=== PATIENT | female | born 1945 | race Two or more races ===

== ENCOUNTER 2018-06-13 03:50 | Inpatient (IN) | payer MEDICARE, MEDICAID ==
[~2018-06-13] VITALS: Ht 165.1 cm; Wt 76.2 kg
[2018-06-13] MEDS ORDERED: PANTOPRAZOLE 40 MG VIAL ONE (04:19)
[2018-06-13] MEDS ORDERED: OCTREOTIDE 100 MCG/ML VIAL ONE (04:23)
[2018-06-13 04:30] LABS: BASOPHILS % (AUTO) 0.3 % (0.0-2.0); EOSINOPHILS % (AUTO) 1.1 % (0.0-6.0); HEMATOCRIT 38 % (33-45); HEMOGLOBIN 12.7 g/dL (11.5-14.8); LYMPHOCYTES # (AUTO) 2.8 /CMM (0.8-4.8); LYMPHOCYTES % (AUTO) 24.4 % (20.0-44.0); MEAN CORPUSCULAR HGB CONC 33 g/dl (31.0-36.0); MEAN CORPUSCULAR VOLUME 91 fL (82-100); MONOCYTES # (AUTO) 0.7 /CMM (0.1-1.30); MONOCYTES % (AUTO) 6.1 % (2.0-12.0); NEUTROPHILS # (AUTO) 7.8 /CMM (1.8-8.9); NEUTROPHILS % (AUTO) 68.1 % (43.0-81.0); PLATELET COUNT (AUTO) 314 /CMM (150-450); RED BLOOD CELL COUNT(AUTO) 4.22 MIL/uL (4.0-5.2); WHITE BLOOD COUNT (AUTO) 11.4 K/uL (4.3-11.0)
[2018-06-13] MEDS ORDERED: OCTREOTIDE 50 MCG/ML AMPUL SQ ONE (04:30)
[2018-06-13] MEDS ORDERED: PANTOPRAZOLE 80 MG in IV NS 0.9% 500 ML IV ONE (04:30)
[2018-06-13] MEDS ORDERED: IV NS 0.9% 1,000 ML BAG IV ONE (04:30)
[2018-06-13 04:41] LABS: CALCIUM, SERUM 8.9 mg/dL (8.5-10.1); CARBON DIOXIDE 25 mmol/L (21-32); CHLORIDE 106 mmol/L (98-107); CREATININE 0.7 mg/dL (0.6-1.3); GLUCOSE 197 mg/dL (74-106); POTASSIUM 3.7 mmol/L (3.5-5.1); SODIUM SERUM 141 mmol/L (136-145); UREA NITROGEN, BLOOD 14 mg/dL (7-18)
[2018-06-13 04:47] LABS: ALANINE AMINOTRANSFERASE 29 U/L (12-78); ALBUMIN 3.2 g/dL (3.4-5.0); ALKALINE PHOSPHATASE 56 U/L (46-116); ASPARTATE AMINOTRANSFERASE 16 U/L (15-37); BILIRUBIN,DIRECT 0.1 mg/dL (0.0-0.2); BILIRUBIN,TOTAL 0.6 mg/dL (0.2-1.0); TOTAL PROTEIN, SERUM 6.1 g/dL (6.4-8.2)
[2018-06-13 05:06] LABS: CREATINE KINASE, TOTAL 41 U/L (26-192)
[2018-06-13] MEDS: IV NS 0.9% 1,000 ML BAG IV PRN ×2 (05:20→06:42)
[2018-06-13] MEDS ORDERED: MAG HYDROX/AL HYDROX/SIMETH 30 ML UDC PO PRN (05:30)
[2018-06-13] MEDS ORDERED: MAGNESIUM HYDROXIDE 30 ML UDC PO PRN (05:30)
[2018-06-13] MEDS ORDERED: MORPHINE SULFATE INJ 2 MG/ML DISP.SYRIN IV PRN (05:30)
[2018-06-13] MEDS ORDERED: ONDANSETRON HCL/PF 4 MG/2 ML VIAL IVP PRN (05:30)
[2018-06-13 06:10] VITALS: BP 126/55
[2018-06-13] MEDS ORDERED: PANTOPRAZOLE 80 MG in IV NS 0.9% 500 ML IV PRN (06:30)
[2018-06-13] MEDS ORDERED: IV NS 0.9% 1,000 ML IV PRN (07:00)
[2018-06-13 08:00] VITALS: BP 103/91
[2018-06-13] MEDS ORDERED: PANTOPRAZOLE 40 MG VIAL IV SCH (09:00)
[2018-06-13] MEDS ORDERED: OMEP1CAP2 PO (10:20)
[2018-06-13] MEDS ORDERED: OLOP2.5D EACHEYE (10:20)
[2018-06-13] MEDS ORDERED: CELE200C PO (10:20)
[2018-06-13] MEDS ORDERED: AMYL1CAP58 PO (10:20)
[2018-06-13] MEDS ORDERED: ACET1TAB23 PO (10:20)
[2018-06-13] MEDS ORDERED: LIRA0.6P2 SQ (10:20)
[2018-06-13] MEDS ORDERED: DAPA1TAB3 PO (10:20)
[2018-06-13] MEDS ORDERED: ATEN25TA PO (10:20)
[2018-06-13] MEDS ORDERED: CYCL30DR EACHEYE (10:20)
[2018-06-13] MEDS ORDERED: ASPI-1169 PO (10:20)
[2018-06-13] MEDS ORDERED: RALO60TA PO (10:20)
[2018-06-13] MEDS ORDERED: EZET10TA14 PO (10:20)
[2018-06-13 11:37] LABS: APPEARANCE,URINE CLEAR (CLEAR); BILIRUBIN,URINE NEGATIVE (NEGATIVE); BLOOD, URINE TRACE Ery/uL (NEGATIVE); COLOR,URINE YELLOW (YELLOW); KETONES,URINE NEGATIVE (NEGATIVE); LEUKOCYTE ESTERASE ,URINE NEGATIVE (NEGATIVE); NITRITE, URINE NEGATIVE (NEGATIVE); PH,URINE 5.5 (5.0-8.0); PROTEIN,URINE NEGATIVE (NEGATIVE); UGLUCOSE 3+ mg/dL (NEGATIVE); UROBILINOGEN,URINE 0.2 EU/dL (0.2)
[2018-06-13 11:40] LABS: BACTERIA,URINE Few /HPF (None Seen); MUCUS,URINE Rare /LPF (None Seen); SQUAMOUS EPITHELIAL CELL,UR Few /HPF (None Seen)
[2018-06-13 12:00] VITALS: BP 103/56
[2018-06-13 16:00] VITALS: BP 109/55
[2018-06-13 20:00] VITALS: BP 118/54
[2018-06-14] VITALS: BP 134/53
[2018-06-14 04:00] VITALS: BP 116/50
[2018-06-14] MEDS: ACETAMINOPHEN 325 MG TABLET PO PRN ×2 (04:12→12:18)
[2018-06-14 07:20] LABS: BASOPHILS # (AUTO) 0.1 /CMM (0.0-0.2); BASOPHILS % (AUTO) 0.6 % (0.0-2.0); EOSINOPHILS % (AUTO) 2.2 % (0.0-6.0); HEMATOCRIT 29 % (33-45); LYMPHOCYTES % (AUTO) 36.8 % (20.0-44.0); MEAN CORPUSCULAR HGB CONC 34 g/dl (31.0-36.0); MEAN CORPUSCULAR VOLUME 89 fL (82-100); MONOCYTES # (AUTO) 0.6 /CMM (0.1-1.30); MONOCYTES % (AUTO) 7.3 % (2.0-12.0); NEUTROPHILS # (AUTO) 4.3 /CMM (1.8-8.9); NEUTROPHILS % (AUTO) 53.1 % (43.0-81.0); PLATELET COUNT (AUTO) 251 /CMM (150-450); RED BLOOD CELL COUNT(AUTO) 3.26 MIL/uL (4.0-5.2)
[2018-06-14 07:35] LABS: CALCIUM, SERUM 8.2 mg/dL (8.5-10.1); CARBON DIOXIDE 25 mmol/L (21-32); CHLORIDE 108 mmol/L (98-107); CREATININE 0.5 mg/dL (0.6-1.3); GLUCOSE 117 mg/dL (74-106); MAGNESIUM 1.8 mg/dL (1.8-2.4); PHOSPHORUS 2.8 mg/dL (2.5-4.9); POTASSIUM 3.5 mmol/L (3.5-5.1); SODIUM SERUM 141 mmol/L (136-145); UREA NITROGEN, BLOOD 8 mg/dL (7-18)
[2018-06-14 07:47] LABS: CHOLESTEROL 154 mg/dL (<200); HDL CHOLESTEROL 33 mg/dL (40-60); LDL 99 mg/dL (0-99); TRIGLYCERIDES 141 mg/dL (30-150)
[2018-06-14 08:00] VITALS: BP 105/50
[2018-06-14 12:00] VITALS: BP 117/62
== END 2018-06-14 16:08 | disposition home or self-care (01) | DRG 920 ==
LOC: ER 03:51 → ICU 04:51 → TELE-TD 05:48 → TELE1 15:20 → MEDSG1 06-14 13:21
PROVIDERS: ADMIT Nurse Practitioner Acute Care; ATTEND Nurse Practitioner Acute Care
DX: K91.840 Postprocedural hemorrhage of a digestive system organ or structure following a digestive system procedure (principal); E87.2 Acidosis; D62 Acute posthemorrhagic anemia; K92.2 Gastrointestinal hemorrhage, unspecified; E11.9 Type 2 diabetes mellitus without complications; Z86.010 Personal history of colon polyps; Y83.8 Other surgical procedures as the cause of abnormal reaction of the patient, or of later complication, without mention of misadventure at the time of the procedure; Y92.89 Other specified places as the place of occurrence of the external cause; M19.90 Unspecified osteoarthritis, unspecified site; E88.09 Other disorders of plasma-protein metabolism, not elsewhere classified; E78.5 Hyperlipidemia, unspecified; D72.829 Elevated white blood cell count, unspecified; K21.9 Gastro-esophageal reflux disease without esophagitis; R55 Syncope and collapse; M81.0 Age-related osteoporosis without current pathological fracture; Z79.84 Long term (current) use of oral hypoglycemic drugs; Z79.82 Long term (current) use of aspirin
CPT/HCPCS: 36415; 71045-TC; 80048-TC; 80061-TC; 80076-TC; 81000-TC; 82550-TC; 82962-TC; 83605-TC; 83735-TC; 84100-TC; 84484-TC; 85025-TC; 85730-TC; 86850-TC; 86900-TC; 87081-TC; 87086-TC; A6403; C1751; C9113; G0378; J2354; J7030; J7040

== ENCOUNTER 2019-04-04 22:59 | Inpatient (IN) | payer MEDICARE, MEDICAID ==
[~2019-04-04] VITALS: Ht 157.5 cm; Wt 74.4 kg
[~2019-04-04 22:59] MED LIST: ACET1TAB23 PO; AMYL1CAP58 PO; ASPI-1169 PO; ATEN25TA PO; CELE200C PO; CYCL30DR EACHEYE; DAPA1TAB3 PO; EZET10TA16 PO; LIRA0.6P2 SQ; OLOP2.5D EACHEYE; OMEP1CAP2 PO; RALO60TA PO
--- NOTE | 2019-04-04 23:10 | NUR ---
BIB RA FOR C/O R KNEE, R ELBOW AND L HIP PAIN W/ SSHORTENING AND ROTATION S/O FALL WHILE GETTING OUT OF SHOWER. DENIED HITTING HER HEAD. - KO. PT RECEIVED 100 MCG OF [place] ON THE FIELD BY youth corrections officer. NOTED W. O2 SAT 89-90% ON R/A . PT WAS PLACED ON O2 AT 2LPM VIA NC AND PLACED ON A MONITOR , WILL CONT TO LOVE ,.
--- NOTE | 2019-04-04 23:28 | NUR ---
MORPHINE AND ZOFRAN IS HELD TEMPORARY . PT REPORTED NO PAIN WHILE SHE REMAINES STABLE W/ NO MOVEMENT.
[2019-04-04 23:30] LABS: BASOPHILS # (AUTO) 0.1 /CMM (0.0-0.2); BASOPHILS % (AUTO) 0.8 % (0.0-2.0); EOSINOPHILS % (AUTO) 0.2 % (0.0-6.0); HEMATOCRIT 45 % (33-45); HEMOGLOBIN 15.2 g/dL (11.5-14.8); LYMPHOCYTES # (AUTO) 1.5 /CMM (0.8-4.8); LYMPHOCYTES % (AUTO) 13.1 % (20.0-44.0); MEAN CORPUSCULAR HGB CONC 34 g/dl (31.0-36.0); MEAN CORPUSCULAR VOLUME 93 fL (82-100); MONOCYTES # (AUTO) 0.7 /CMM (0.1-1.30); MONOCYTES % (AUTO) 5.9 % (2.0-12.0); NEUTROPHILS # (AUTO) 9.3 /CMM (1.8-8.9); PLATELET COUNT (AUTO) 241 /CMM (150-450); RED BLOOD CELL COUNT(AUTO) 4.84 MIL/uL (4.0-5.2); WHITE BLOOD COUNT (AUTO) 11.6 K/uL (4.3-11.0)
[2019-04-04] MEDS ORDERED: ONDANSETRON HCL/PF 4 MG/2 ML VIAL IVP ONE (23:30)
[2019-04-04] MEDS ORDERED: MORPHINE SULFATE INJ 2 MG/ML DISP.SYRIN IV ONE (23:30)
[2019-04-04] MEDS ORDERED: IV NS 0.9% 500 ML BAG IV ONE (23:30)
--- NOTE | 2019-04-04 23:35 | NUR ---
PT WAS PICKED UP FOR CT
[2019-04-04 23:36] LABS: CALCIUM, SERUM 9.1 mg/dL (8.5-10.1); CARBON DIOXIDE 27 mmol/L (21-32); CHLORIDE 103 mmol/L (98-107); CREATININE 0.6 mg/dL (0.6-1.3); GLUCOSE 199 mg/dL (74-106); POTASSIUM 3.6 mmol/L (3.5-5.1); SODIUM SERUM 141 mmol/L (136-145); UREA NITROGEN, BLOOD 10 mg/dL (7-18)
[2019-04-04 23:42] LABS: ALANINE AMINOTRANSFERASE 42 U/L (12-78); ALBUMIN 3.7 g/dL (3.4-5.0); ALKALINE PHOSPHATASE 62 U/L (46-116); ASPARTATE AMINOTRANSFERASE 23 U/L (15-37); BILIRUBIN,DIRECT 0.1 mg/dL (0.0-0.2); BILIRUBIN,TOTAL 0.6 mg/dL (0.2-1.0); TOTAL PROTEIN, SERUM 6.9 g/dL (6.4-8.2)
--- NOTE | 2019-04-04 23:54 | NUR ---
BACK FROM CT
--- NOTE | 2019-04-05 00:16 | NUR ---
PT / FAMILY DO NOT RECALL THE LIST OF HOME MEDS. THEY WILL PROVIDE THE LIST LATER.
[2019-04-05] MEDS ORDERED: ONDANSETRON HCL/PF 4 MG/2 ML VIAL ONE (00:30)
[2019-04-05] MEDS ORDERED: MORPHINE SULFATE INJ 4 MG/ML DISP.SYRIN ONE (00:31)
--- NOTE | 2019-04-05 00:37 | NUR ---
DR. RIVERA AT THE BED SIDE
--- NOTE | 2019-04-05 00:45 | NUR ---
F/C INSERTED PER MD'S APPROVAL , DRAINING CLEAR YELLOW URINE .
--- NOTE | 2019-04-05 00:51 | NUR ---
PAGED [employer]EN [employer] GUARD, DR. TORRES
--- NOTE | 2019-04-05 01:06 | NUR ---
BED ASSIGNMENT 325-2
[2019-04-05] MEDS ORDERED: MAGNESIUM HYDROXIDE 30 ML UDC PO PRN (01:30)
[2019-04-05] MEDS ORDERED: ATENOLOL 25 MG TABLET PO PRN (01:30)
[2019-04-05] MEDS ORDERED: ZOLPIDEM TARTRATE 5 MG TABLET PO PRN (01:30)
[2019-04-05] MEDS ORDERED: ONDANSETRON HCL/PF 4 MG/2 ML VIAL IVP PRN (01:30)
[2019-04-05] MEDS ORDERED: Z GUARD REMEDY 2 OZ OINT TP PRN (01:30)
[2019-04-05] MEDS ORDERED: ACETAMINOPHEN W/ CODEINE#3 1 EA TABLET PO PRN (01:30)
[2019-04-05] MEDS ORDERED: MAG HYDROX/AL HYDROX/SIMETH 30 ML UDC PO PRN (01:30)
--- NOTE | 2019-04-05 01:36 | NUR ---
REPORT GIVEN TO GABRIELA ON THE THIRD FLOOR
--- NOTE | 2019-04-05 01:43 | NUR ---
PT WAS TRANSFERRE TO THR FLOOR IN SRTABLE CONDITION.
[2019-04-05 01:45] VITALS: BP 121/67
--- NOTE | 2019-04-05 01:45 | NUR ---
MS RN ADMITTING NOTES PATIENT ARRIVED ON UNIT VIA GURNEY, ACCOMPANIED BY ER STAFF AND FAMILY; VITALS WNL; PATIENT ON 2L NC; NO SOB NOTED; PATIENT AWAKE, A/O X4; PATIENT REFUSED SKIN ASSESSMENT D/T PAIN; L AC #20 INTACT AND PATENT; FLUSHING WELL, NO S/S OF REDNESS OR INFILTRATION; SAFETY PRECAUTIONS IN PLACE; BED LOCKED IN LOW POSITION, SEMI-FOWLERS; BILATERAL UPPER SIDE RAILS X2; CALL LIGHT WITHIN EASY REACH; WILL CONTINUE TO MONITOR
[2019-04-05] MEDS: MORPHINE SULFATE INJ 2 MG/ML DISP.SYRIN IV PRN ×3 (04:59→23:27)
--- NOTE | 2019-04-05 06:25 | NUR ---
MS RN CLOSING NOTES PATIENT RESTING IN BED COMFORTABLY; NO SOB NOTED; BREATHING EVEN AND UNLABORED; PATIENT ON 2L NC AND TOLERATING WELL; PATIENT A/O X4; SPANISH SPEAKING; PATIENT UNABLE TO MOVE D/T L HIP FRACTURE; PATIENT VERBALIZED SHE DOES NOT WANT TO BE MOVED BECAUSE INACTIVITY HELPS RELIEVE HER PAIN; L AC #20 INTACT AND PATENT; NO S/S OF REDNESS OR INFILTRATION; WARREN INTACT AND PATENT; FLOWING YELLOW URINE; SAFETY PRECAUTIONS IMPLEMENTED; WILL ENDORSE SMILEY TO ONCOMING SHIFT
[2019-04-05 07:24] LABS: CALCIUM, SERUM 8.9 mg/dL (8.5-10.1); CARBON DIOXIDE 29 mmol/L (21-32); CHLORIDE 103 mmol/L (98-107); CREATININE 0.5 mg/dL (0.6-1.3); GLUCOSE 145 mg/dL (74-106); MAGNESIUM 1.7 mg/dL (1.8-2.4); PHOSPHORUS 3.7 mg/dL (2.5-4.9); POTASSIUM 3.9 mmol/L (3.5-5.1); SODIUM SERUM 140 mmol/L (136-145); UREA NITROGEN, BLOOD 7 mg/dL (7-18)
[2019-04-05 07:25] LABS: BASOPHILS % (AUTO) 0.3 % (0.0-2.0); EOSINOPHILS % (AUTO) 0.1 % (0.0-6.0); HEMATOCRIT 44 % (33-45); HEMOGLOBIN 14.5 g/dL (11.5-14.8); LYMPHOCYTES # (AUTO) 1.4 /CMM (0.8-4.8); LYMPHOCYTES % (AUTO) 13.8 % (20.0-44.0); MEAN CORPUSCULAR HGB CONC 33 g/dl (31.0-36.0); MEAN CORPUSCULAR VOLUME 93 fL (82-100); MONOCYTES # (AUTO) 0.7 /CMM (0.1-1.30); NEUTROPHILS # (AUTO) 8.1 /CMM (1.8-8.9); NEUTROPHILS % (AUTO) 78.8 % (43.0-81.0); PLATELET COUNT (AUTO) 231 /CMM (150-450); RED BLOOD CELL COUNT(AUTO) 4.74 MIL/uL (4.0-5.2); WHITE BLOOD COUNT (AUTO) 10.3 K/uL (4.3-11.0)
[2019-04-05 07:33] LABS: CHOLESTEROL 115 mg/dL (<200); HDL CHOLESTEROL 62 mg/dL (40-60); LDL 51 mg/dL (0-99); TRIGLYCERIDES 46 mg/dL (30-150)
--- NOTE | 2019-04-05 07:43 | NUR ---
rn opening notes Patient received on 2l nasal cannula, no sob noted, patient denies pain at this time. Patient able to understand and speak Portuguese. Guidry in place, NPO at this time with L AC 20 saline lock. NO IVF. Awaiting for med recon. Bed at the lowest setting, call light within reach, side rails up x2.
[2019-04-05 08:00] VITALS: BP 125/69
[2019-04-05] MEDS: LIPASE/PROTEASE/AMYLASE 1 EACH CAPSULE.DR PO SCH ×3 (08:00→17:36)
[2019-04-05] MEDS: ASPIRIN 81 MG TAB.CHEW PO SCH (08:15)
[2019-04-05] MEDS: EZETIMIBE 10 MG TABLET PO SCH (08:16)
[2019-04-05] MEDS: CELECOXIB 100 MG CAPSULE PO SCH (08:16)
[2019-04-05] MEDS: Magnesium 1GM/D5W 100ML PREMIX 100 ML IV SCH ×2 (10:36→11:47)
--- NOTE | 2019-04-05 11:32 | NUR ---
rn notes Spoke to about patients home medications. He states that he can bring it tomorrow or later tonight.
[2019-04-05] MEDS ORDERED: BUPIVACAINE 0.5 % PF 150 MG/30 ML VIAL ONE ×2 (15:18)
[2019-04-05] MEDS ORDERED: BACITRACIN 50000 UNITS/VIAL ONE ×2 (15:18)
[2019-04-05 16:00] VITALS: BP 134/66
[2019-04-05] MEDS ORDERED: MIDAZOLAM HCL 2 MG/2ML VIAL ONE (16:43)
[2019-04-05] MEDS ORDERED: FENTANYL PF 250MCG/5ML AMPUL ONE (16:43)
[2019-04-05] MEDS ORDERED: FAMOTIDINE/PF INJ 20 MG/2 ML VIAL IV ONE (16:44)
[2019-04-05] MEDS: OLOPATADINE HCL 0.1% OPHTH BOTTLE EACHEYE SCH (17:00)
--- NOTE | 2019-04-05 17:36 | NUR ---
rn notes Patient in surgery at this time
--- NOTE | 2019-04-05 17:48 | NUR ---
rn closing notes Patient remains on 2L nasal cannula, no sob noted, was NPO for the whole shift due to a pending surgery, which the patient went to around 1630. Patient still in surgery at this time. L AC 20 SL. Awaiting for patient to get back.
[2019-04-05] MEDS ORDERED: HYDROMORPHONE 1 MG/1 ML DISP.SYRIN ONE (19:08)
--- NOTE | 2019-04-05 19:08 | NUR ---
rn notes Guidry emptied with 650 ml of fluids pre surgery
--- NOTE | 2019-04-05 19:31 | NUR ---
MS RN OPENING NOTES PATIENT CURRENTLY IN SURGERY
[2019-04-05 19:55] VITALS: BP 111/65
--- NOTE | 2019-04-05 19:55 | NUR ---
MS RN NOTES PATIENT RECEIVED BACK FROM OR VIA GURNEY ACCOMPANIED BY OR STAFF AND VISITORS. PATIENT ON 3L OF NC BREATHING EVEN AND UNLABORED, NO SOB NOTED. PATIENT A/O X 4, MOSTLY DOMINICAN SPEAKING. NO COMPLAINTS OF PAIN OR DISCOMFORT AT THE MOMENT. DRESSING ON L THIGH, REINFORCED BY OR STAFF DUE TO SCANT BLEEDING. VITALS TAKEN 111/ 65 HR 123 RR 19 T 98.1 O2 94%. ORDERS PLACED. WILL CONTINUE TO MONITOR.
--- NOTE | 2019-04-05 20:18 | NUR ---
MS RN NOTES PRN ATENOLOL ADMINISTERED DUE TO HR OF 123. OR NURSE ENDORSED IT WAS HIGH POST OP. WILL CONTINUE TO MONITOR.
[2019-04-05 20:30] VITALS: BP 106/59
[2019-04-05 20:34] VITALS: BP 111/65
[2019-04-06] VITALS (8 sets, daily range): BP systolic 114–130; BP diastolic 56–65
[2019-04-06] MEDS: CEFAZOLIN 2 GM in IV D5W 100 ML IV SCH ×2 (00:37→10:47)
[2019-04-06] MEDS: MORPHINE SULFATE INJ 2 MG/ML DISP.SYRIN IV PRN ×2 (03:29→09:40)
--- NOTE | 2019-04-06 06:52 | NUR ---
MS RN CLOSING NOTES PATIENT RESTING IN BED A/O X 4, MOSTLY CITIZEN OF [place] SPEAKING. ON 2L OF O2 VIA NC WITH BREATHING EVEN AND UNLABORED, NO SOB NOTED. NO SIGNS OF ACUTE DISTRESS. FEELING SLIGHT PAIN AND DISCOMFORT S/P SURGERY ON LEFT HIP- PAIN MEDICATION GIVEN NEEDED. IV LOCATED ON L AC #[address] PATENT AND [address]NACT. WARREN IN PLACE WITH CLEAR YELLOW URINE. LEFT HIP DRESSING INTACT. SAFETY PRECAUTIONS IN PLACE WITH BED IN LOWEST POSITION, CALL LIGHT WITHIN REACH, BREAKS ON, SIDE RAILS UP. ALL NEEDED WERE ATTENDED TO AND PATIENT WAS KEPT CLEAN AND DRY THROUGHOUT THE NIGHT. WILL ENDROSE TO ONCOMING SHFIT ABOUT SIMLEY.
[2019-04-06] MEDS: ACETAMINOPHEN 325 MG TABLET PO PRN (06:58)
--- NOTE | 2019-04-06 07:00 | NUR ---
MS RN NOTES PRN TYLENOL 650 MG ADMINISTERED BECAUSE OF COMPLAINT OF HEADACHE. WILL ENDORSE TO ONCOMING SHIFT
[2019-04-06 08:07] LABS: CALCIUM, SERUM 7.9 mg/dL (8.5-10.1); CREATININE 0.6 mg/dL (0.6-1.3)
[2019-04-06] MEDS: CELECOXIB 100 MG CAPSULE PO SCH (08:20)
[2019-04-06] MEDS: LIPASE/PROTEASE/AMYLASE 1 EACH CAPSULE.DR PO SCH ×3 (08:20→17:14)
[2019-04-06] MEDS: EZETIMIBE 10 MG TABLET PO SCH (08:20)
[2019-04-06] MEDS: ASPIRIN 81 MG TAB.CHEW PO SCH (08:20)
[2019-04-06] MEDS: OLOPATADINE HCL 0.1% OPHTH BOTTLE EACHEYE SCH ×2 (08:21→17:14)
--- NOTE | 2019-04-06 11:46 | NUR ---
Patient placed on tele-monitor per Dr. Vega . ON monitor SR with HR 86
--- NOTE | 2019-04-06 12:09 | NUR ---
unable to obtain orthostatic BP due to pt unable to stand up
--- NOTE | 2019-04-06 14:10 | NUR ---
Patient and family refused to take orthostatic BP . Patient stated , " Im afraid to stand up but I feel good now"
[2019-04-06] MEDS: METFORMIN HCL PO SCH (17:14)
[2019-04-06] MEDS: DAPAGLIFLOZIN PO SCH (17:14)
[2019-04-06] MEDS: ENOXAPARIN SODIUM 40 MG/0.4 ML DISP.SYRIN SQ SCH (17:20)
--- NOTE | 2019-04-06 18:26 | NUR ---
Patient resting in bed. Breathing unlabored and even on O2 via NC 3l saturating 96%. VS are stable. No episodes of dizziness noted. Unable to obtain patient orthostatic BP due to pt fear to stand up. IV line intact and flushing well. L hip dressing clean and dry. Denies pain at this time. All needs attended. Safety precautions in place, call light within reach . Will endorse to next shift for SMILEY.
--- NOTE | 2019-04-06 19:40 | NUR ---
LEGAL INVESTIGATOR OPENING NOTES PATIENT RECEIVED RESTING IN BED A/O X 4, MOSTLY SWAZ[place] SPEAKING. ON 3L OF O2 VIA NC WITH BREATHING EVEN AND UNLABORED, NO SOB NOTED. NO SIGNS OF ACUTE DISTRESS. NO COMPLAINTS OF PAIN OR DISCOMFORT. IV LOCATED ON L AC #20 PATENT AND INTACT. WARREN IN PLACE WITH CLEAR YELLOW URINE. LEFT HIP DRESSING INTACT. SAFETY PRECAUTIONS IN PLACE WITH BED IN LOWEST POSITION, CALL LIGHT WITHIN REACH, BREAKS ON, SIDE RAILS UP. WILL CONTINUE TO MONITOR
[2019-04-06] MEDS: HYDROCODONE/APAP 5/325MG 1 EACH TABLET PO PRN (21:22)
[2019-04-07] VITALS (7 sets, daily range): BP systolic 79–130; BP diastolic 36–97
[2019-04-07] MEDS: ACETAMINOPHEN 325 MG TABLET PO PRN ×2 (05:25→18:14)
--- NOTE | 2019-04-07 05:30 | NUR ---
PATHOLOGY LABORATORY TECHNOLOGIST NOTES PRN TYLENOL ADMINISTERED PER PATIENT REQUEST DUE TO HEADACHE
--- NOTE | 2019-04-07 06:27 | NUR ---
CUSHION MAT MAKER CLOSING NOTES PATIENT RESTING IN BED A/O X 4, MOSTLY CITIZEN OF [place] SPEAKING. ON 3L OF O2 VIA NC WITH BREATHING EVEN AND UNLABORED, NO SOB NOTED. NO SIGNS OF ACUTE DISTRESS. FEELING SLIGHT PAIN AND DISCOMFORT S/P SURGERY ON LEFT HIP- PAIN MEDICATION GIVEN NEEDED. IV LOCATED ON L AC #20 PATENT AND ITNACT. WARREN IN PLACE WITH CLEAR YELLOW URINE. LEFT HIP DRESSING INTACT. SAFETY PRECAUTIONS IN PLACE WITH BED IN LOWEST POSITION, CALL LIGHT WITHIN REACH, BREAKS ON, SIDE RAILS UP. ALL NEEDED WERE ATTENDED TO AND PATIENT WAS KEPT CLEAN AND DRY THROUGHOUT THE NIGHT. WILL ENDROSE TO ONCOMING SHFIT ABOUT SMILEY.
[2019-04-07 07:05] LABS: BASOPHILS % (AUTO) 0.6 % (0.0-2.0); EOSINOPHILS % (AUTO) 1.2 % (0.0-6.0); HEMATOCRIT 32 % (33-45); HEMOGLOBIN 10.6 g/dL (11.5-14.8); LYMPHOCYTES # (AUTO) 1.8 /CMM (0.8-4.8); MEAN CORPUSCULAR HGB CONC 34 g/dl (31.0-36.0); MEAN CORPUSCULAR VOLUME 93 fL (82-100); MONOCYTES # (AUTO) 0.7 /CMM (0.1-1.30); MONOCYTES % (AUTO) 8.2 % (2.0-12.0); NEUTROPHILS # (AUTO) 5.9 /CMM (1.8-8.9); PLATELET COUNT (AUTO) 168 /CMM (150-450); RED BLOOD CELL COUNT(AUTO) 3.39 MIL/uL (4.0-5.2); WHITE BLOOD COUNT (AUTO) 8.6 K/uL (4.3-11.0)
--- NOTE | 2019-04-07 07:30 | NUR ---
SUPPORTIVE EMPLOYMENT CASE MANAGER NOTES RECEIVED PATIENT IN BED, ALERT AND AWAKE ORIENTED X4. NO SOB. DENIES ANY C/O PAIN NOR DISCOMFORT AT THIS TIME. ON TELE MONITORING SR: 96. F/C INTACT AND PATENT DRAINING YELLOW COLORED URINE VIA BEDSIDE. LEFT HIP DRESSING INTACT. LEFT AC # 20 INTACT AND PATENT INFUSING NS @ 100ML/HR CAMILO WELL. BED IN LOWEST POSITION, LOCKED. BED ALARM ON. CALL LIGHT WITHIN REACH.
[2019-04-07 07:56] LABS: CALCIUM, SERUM 8.5 mg/dL (8.5-10.1); CARBON DIOXIDE 24 mmol/L (21-32); CHLORIDE 101 mmol/L (98-107); CREATININE 0.4 mg/dL (0.6-1.3); GLUCOSE 120 mg/dL (74-106); MAGNESIUM 2.1 mg/dL (1.8-2.4); PHOSPHORUS 2.3 mg/dL (2.5-4.9); SODIUM SERUM 137 mmol/L (136-145); UREA NITROGEN, BLOOD 10 mg/dL (7-18)
[2019-04-07] MEDS: DAPAGLIFLOZIN PO SCH ×2 (08:12→17:35)
[2019-04-07] MEDS: LIPASE/PROTEASE/AMYLASE 1 EACH CAPSULE.DR PO SCH ×3 (08:12→17:36)
[2019-04-07] MEDS: METFORMIN HCL PO SCH ×2 (08:12→17:35)
[2019-04-07] MEDS: OLOPATADINE HCL 0.1% OPHTH BOTTLE EACHEYE SCH ×2 (08:12→17:36)
[2019-04-07] MEDS: EZETIMIBE 10 MG TABLET PO SCH (08:12)
[2019-04-07] MEDS: CELECOXIB 100 MG CAPSULE PO SCH (08:13)
[2019-04-07] MEDS: ASPIRIN 81 MG TAB.CHEW PO SCH (08:13)
[2019-04-07] MEDS ORDERED: LIRAGLUTIDE 0.6 MG SQ SCH (09:00)
--- NOTE | 2019-04-07 09:00 | NUR ---
TELE TN NOTES RESTASIS NON-ADMINISTERED. AWAITING FOR MEDICATION.
[2019-04-07] MEDS: HYDROCODONE/APAP 5/325MG 1 EACH TABLET PO PRN (11:16)
--- NOTE | 2019-04-07 11:16 | NUR ---
ACCOUNT RECEIVABLE ASSOCIATE NOTES C/O PAIN 08/16 NORCO GIVEN. CURRENT BP 125/71 HR 91
--- NOTE | 2019-04-07 11:53 | NUR ---
LAUNDRY FOLDER NOTES ORTHOSTATIC HYPOTENSION SUPINE: 115/97 HR 97 SITTIN/36 HR 111 RECHECKED AFTER 2 MIN 99/51 HR 107 RECHECKED AFTER 15 MIN 110/68 ( MANUAL CUFF WITH AUSCULTATION) STAND: 91/42 HR 124 RECHECKED AFTER 10 MIN 125/91 HR 91 INFORMED CAYETANO JUAN REGARDING ORTHOSTATIC HYPOTENSION, WEANING OF O2 AT REST, PATIENT PRESENTS WITH SPO2 OF 94-98% ROOM AIR BUT WITH SLIGHTEST ACTIVITY, SPO2 DROPS DOWN TO 90% ROOM AIR. AND WITH POSITION CHANGES AND ACTIVITY, PATIENT BECOMES PALE AND COLD BUT COLOR RETURNS AFTER FEW MINUTES. RECEIVED N.O. NOTED AND CARRIED OUT.
[2019-04-07] MEDS ORDERED: IV NS 0.9% 1,000 ML IV PRN (12:00)
[2019-04-07] MEDS ORDERED: IV NS 0.9% 1,000 ML IV SCH (12:00)
[2019-04-07] MEDS ORDERED: K PHOS NEUTRAL 250 MG TABLET PO ONE (12:00)
[2019-04-07 12:50] LABS: HEMOGLOBIN 10.6 g/dL (11.5-14.8)
[2019-04-07] MEDS ORDERED: BISACODYL (5 MG) 5 MG TABLET.DR PO PRN (15:00)
[2019-04-07] MEDS: IV NS 0.9% 1,000 ML IV PRN (15:02)
[2019-04-07] MEDS: ENOXAPARIN SODIUM 40 MG/0.4 ML DISP.SYRIN SQ SCH (17:38)
--- NOTE | 2019-04-07 18:58 | NUR ---
CURING ROOM WORKER NOTES PATIENT RESTING COMFORTABLY IN BED WATCHING TV. HOB ELEVATED. NO S/S OF RESPIRATORY DISTRESS. ON O2 VIA NC @ 3L/MIN. DENIES ANY C/O PAIN NOR DISCOMFORT AT THIS TIME. F/C INTACT AND PATENT DRAINING YELLOW COLORED URINE VIA BEDSIDE. LEFT HIP SURGICAL INCISION DRESSING INTACT. LEFT AC # 20 INTACT AND PATENT INFUSING NS @ 100ML/HR CAMILO WELL. BED IN LOWEST POSITION, LOCKED. BED ALARM ON. CALL LIGHT WITHIN REACH. IN NO APPARENT DISTRESS.
--- NOTE | 2019-04-07 20:21 | NUR ---
MS/RN PATIENT IS AWAKE, ALERT, ORIENTED, COMFORTABLE, NO SIGNS OF DISTRESS NOTED, FALL RISK DUE TO DIZZINESS WITH MOVEMENT, ENCOURAGED PATIENT TO CALL FOR ANY ASSISTANCE, VERBALIZED UNDERSTANDING. WILL MONITOR.
--- NOTE | 2019-04-08 02:00 | NUR ---
MS/RN PATIENT REFUSED IVF.
[2019-04-08] MEDS: ACETAMINOPHEN 325 MG TABLET PO PRN (06:16)
--- NOTE | 2019-04-08 06:24 | NUR ---
MS/RN PATIENT IS AWAKE, ALERT, C/O OF HEADACHE, TYLENOL 650 MG PO WAS GIVEN ORDERED, ALL NEEDS ATTENDED AT THIS TIME, SLEPT GOOD THE WHOLE SHIFT. WILL CONTINUE TO MONITOR.
[2019-04-08 07:20] LABS: BASOPHILS % (AUTO) 0.4 % (0.0-2.0); EOSINOPHILS % (AUTO) 2.4 % (0.0-6.0); HEMATOCRIT 28 % (33-45); HEMOGLOBIN 9.8 g/dL (11.5-14.8); LYMPHOCYTES # (AUTO) 1.7 /CMM (0.8-4.8); LYMPHOCYTES % (AUTO) 21.8 % (20.0-44.0); MEAN CORPUSCULAR HGB CONC 35 g/dl (31.0-36.0); MEAN CORPUSCULAR VOLUME 92 fL (82-100); MONOCYTES # (AUTO) 0.7 /CMM (0.1-1.30); NEUTROPHILS % (AUTO) 66.4 % (43.0-81.0); PLATELET COUNT (AUTO) 182 /CMM (150-450); RED BLOOD CELL COUNT(AUTO) 3.07 MIL/uL (4.0-5.2); WHITE BLOOD COUNT (AUTO) 7.6 K/uL (4.3-11.0)
--- NOTE | 2019-04-08 07:30 | NUR ---
MS/RN Opening note Received patient AOx4, Able to responds all stimuli. Pt denies dizziness or discomfort. Skin is warm to touch, clean/dry, intact IV site, no fever. Respiratory even and unlabored, no sob or distress observed with room air. Kept lower position of bed with elevated HOB. Call light within reach, will continue to monitor.
[2019-04-08 08:00] VITALS: BP 134/60
[2019-04-08 08:04] LABS: CALCIUM, SERUM 8.8 mg/dL (8.5-10.1); CARBON DIOXIDE 24 mmol/L (21-32); CHLORIDE 103 mmol/L (98-107); CREATININE 0.4 mg/dL (0.6-1.3); GLUCOSE 114 mg/dL (74-106); MAGNESIUM 1.9 mg/dL (1.8-2.4); PHOSPHORUS 2.8 mg/dL (2.5-4.9); POTASSIUM 3.7 mmol/L (3.5-5.1); SODIUM SERUM 139 mmol/L (136-145); UREA NITROGEN, BLOOD 7 mg/dL (7-18)
[2019-04-08] MEDS: IV NS 0.9% 1,000 ML IV PRN (08:13)
[2019-04-08] MEDS: OLOPATADINE HCL 0.1% OPHTH BOTTLE EACHEYE SCH ×2 (08:13→17:15)
[2019-04-08] MEDS: EZETIMIBE 10 MG TABLET PO SCH (08:13)
[2019-04-08] MEDS: ASPIRIN 81 MG TAB.CHEW PO SCH (08:14)
[2019-04-08] MEDS: DAPAGLIFLOZIN PO SCH ×2 (08:14→17:15)
[2019-04-08] MEDS: LIPASE/PROTEASE/AMYLASE 1 EACH CAPSULE.DR PO SCH ×3 (08:14→17:15)
[2019-04-08] MEDS: METFORMIN HCL PO SCH ×2 (08:14→17:15)
[2019-04-08] MEDS: CELECOXIB 100 MG CAPSULE PO SCH (08:14)
--- NOTE | 2019-04-08 12:40 | NUR ---
Orthostatic BP taken and informed OPERATIONS MANAGER STATION/Elizabeth Kelsey
[2019-04-08] MEDS: MIDODRINE HCL (5MG) 5 MG TABLET PO SCH ×2 (13:47→17:16)
[2019-04-08 16:00] VITALS: BP 116/76
[2019-04-08] MEDS: ENOXAPARIN SODIUM 40 MG/0.4 ML DISP.SYRIN SQ SCH (17:17)
[2019-04-08 18:26] LABS: APPEARANCE,URINE CLEAR (CLEAR); BILIRUBIN,URINE NEGATIVE (NEGATIVE); BLOOD, URINE TRACE-INTA Ery/uL (NEGATIVE); COLOR,URINE YELLOW (YELLOW); KETONES,URINE 15 (NEGATIVE); LEUKOCYTE ESTERASE ,URINE NEGATIVE (NEGATIVE); NITRITE, URINE NEGATIVE (NEGATIVE); PH,URINE 6.5 (5.0-8.0); PROTEIN,URINE NEGATIVE (NEGATIVE); UGLUCOSE >=1000 mg/dL (NEGATIVE); UROBILINOGEN,URINE 0.2 EU/dL (0.2)
--- NOTE | 2019-04-08 18:30 | NUR ---
MS/RN Closing note Patient in bed comfortably, denies pain or discomfort. Skin is warm to touch, clean/dry, intact dressing from left hip post sx. PT done today with moderate assist. Pt on winchester cahte, clear/yellow in urine color. No dizziness observed during day shift. Respiratory even and unlabored, no sob or distress observed. Kept lower position of bed with elevated HOB. Call light within reach, all needs met, will endorse third shift lieutenant.
[2019-04-08 18:42] LABS: BACTERIA,URINE None seen /HPF (None Seen); SQUAMOUS EPITHELIAL CELL,UR 0-2 /HPF (None Seen); WBC,URINE 0-2 /HPF (0-3); YEAST,URINE Few /HPF (None Seen)
--- NOTE | 2019-04-08 19:38 | NUR ---
ms josafat initial notes Received report from am nurse Larisa/rn . pt in bed on semi fowlers position with side rails x2 up. She's resting with eyes closed but arouse to touch. denies any pain or any discomfort. she had winchester to gravity with clear yellow output noted . She also have IVF of NS at 100ml/hr infusing at this time. kept her warm and comfortable at all times. place call light at reach. will continue monitoring.
[2019-04-08 20:00] VITALS: BP 115/64
[2019-04-08 20:14] VITALS: BP_SYST 105; BP_SYST 115; BP_DIAS 56; BP_DIAS 64
--- NOTE | 2019-04-09 01:38 | NUR ---
ms josafat notes pt sleeping comfortably in bed without any distress or any discomfort noted. IVF still infusing. kept her warm and comfortable at all times. will continue monitoring. place call light at reach.
[2019-04-09] MEDS: ACETAMINOPHEN 325 MG TABLET PO PRN (04:01)
[2019-04-09] MEDS: IV NS 0.9% 1,000 ML IV PRN (06:08)
[2019-04-09 06:36] LABS: BASOPHILS % (AUTO) 0.6 % (0.0-2.0); EOSINOPHILS % (AUTO) 2.1 % (0.0-6.0); HEMATOCRIT 28 % (33-45); HEMOGLOBIN 9.7 g/dL (11.5-14.8); LYMPHOCYTES # (AUTO) 1.9 /CMM (0.8-4.8); LYMPHOCYTES % (AUTO) 24.6 % (20.0-44.0); MEAN CORPUSCULAR HGB CONC 34 g/dl (31.0-36.0); MEAN CORPUSCULAR VOLUME 92 fL (82-100); MONOCYTES # (AUTO) 0.7 /CMM (0.1-1.30); MONOCYTES % (AUTO) 9.7 % (2.0-12.0); NEUTROPHILS # (AUTO) 4.8 /CMM (1.8-8.9); PLATELET COUNT (AUTO) 238 /CMM (150-450); RED BLOOD CELL COUNT(AUTO) 3.04 MIL/uL (4.0-5.2); WHITE BLOOD COUNT (AUTO) 7.6 K/uL (4.3-11.0)
--- NOTE | 2019-04-09 07:20 | NUR ---
MS RN NOTES RECEIVED PATIENT IN BED, ALERT AND AWAKE ORIENTED X4. NO SOB. DENIES ANY C/O PAIN NOR DISCOMFORT AT THIS TIME. F/C INTACT AND PATENT DRAINING YELLOW COLORED URINE VIA BEDSIDE. LEFT HIP DRESSING INTACT. LEFT AC IV ACCESS INTACT AND PATENT INFUSING NS @ 100ML/HR CAMILO WELL. BED IN LOWEST POSITION, LOCKED. BED ALARM ON. CALL LIGHT WITHIN REACH. ABLE TO VERBALIZE NEEDS.
--- NOTE | 2019-04-09 07:22 | NUR ---
ms steam press tender closing notes pt awake and alert watching tv at this time not in any discomfort . stable concha the night and slept well. morning care done . kept her warm and comfortable at all times. IVF still infusing. Guidry to gravity with clear yellow output noted. endorse to am nurse for continuity of care. place call light at reach.
[2019-04-09 07:28] LABS: CARBON DIOXIDE 26 mmol/L (21-32); CHLORIDE 102 mmol/L (98-107); CREATININE 0.5 mg/dL (0.6-1.3); GLUCOSE 102 mg/dL (74-106); MAGNESIUM 1.8 mg/dL (1.8-2.4); PHOSPHORUS 3.2 mg/dL (2.5-4.9); POTASSIUM 3.6 mmol/L (3.5-5.1); SODIUM SERUM 139 mmol/L (136-145); UREA NITROGEN, BLOOD 10 mg/dL (7-18)
[2019-04-09 08:00] VITALS: BP 127/62
[2019-04-09] MEDS: OLOPATADINE HCL 0.1% OPHTH BOTTLE EACHEYE SCH ×2 (08:31→16:43)
[2019-04-09] MEDS: METFORMIN HCL PO SCH ×2 (08:31→16:42)
[2019-04-09] MEDS: DAPAGLIFLOZIN PO SCH ×2 (08:31→16:42)
[2019-04-09] MEDS: CELECOXIB 100 MG CAPSULE PO SCH (08:31)
[2019-04-09] MEDS: LIPASE/PROTEASE/AMYLASE 1 EACH CAPSULE.DR PO SCH ×3 (08:32→17:19)
[2019-04-09] MEDS: MIDODRINE HCL (5MG) 5 MG TABLET PO SCH ×4 (08:32→16:42)
[2019-04-09] MEDS: EZETIMIBE 10 MG TABLET PO SCH (08:32)
--- NOTE | 2019-04-09 08:33 | NUR ---
MS RN NOTES HELD MIDODRINE B/P 127/62
[2019-04-09] MEDS: HYDROCODONE/APAP 5/325MG 1 EACH TABLET PO PRN (09:56)
--- NOTE | 2019-04-09 10:00 | NUR ---
MS RN NOTES PATIENT SEEN BY CAYETANO JUAN INFORMED DRAKE ABOUT B/P 127/62, PER DRAKE ADMINISTER MIDODRINE. MIDODRINE GIVEN ORDERED.
[2019-04-09] MEDS ORDERED: Midodrine Hcl (5MG) PO (11:12)
[2019-04-09] MEDS ORDERED: ENOX40DI SQ (11:12)
[2019-04-09 16:00] VITALS: BP 124/57
[2019-04-09 16:42] VITALS: BP 124/57
[2019-04-09] MEDS: ENOXAPARIN SODIUM 40 MG/0.4 ML DISP.SYRIN SQ SCH (17:18)
--- NOTE | 2019-04-09 19:10 | NUR ---
MS RN NOTES ALERT AND AWAKE ORIENTED X4. NO SOB. DENIES ANY C/O PAIN NOR DISCOMFORT AT THIS TIME. F/C INTACT AND PATENT DRAINING YELLOW COLORED URINE VIA BEDSIDE. LEFT HIP DRESSING INTACT. IV ACCESS REMOVED WITH CATHETER TIP INTACT WITH GAUZE DRESSING IN PLACE. REPORT GIVEN TO HOLLY AT [facility]. CALLED SON NATAN AND LEFT MESSAGE OF TRANSFER @ [phone]. ALL BELONGINGS ACCOUNTED. PATIENT LEFT VIA GURNEY ACCOMPANIED BY 2 EMT. LEFT IN STABLE CONDITION.
== END 2019-04-09 19:20 | DRG 481 ==
LOC: ER 22:59 → MED 04-05 01:27 → TELE 04-06 11:43 → MED 04-07 18:42
PROVIDERS: ADMIT Registered Nurse; ATTEND Registered Nurse
PROC: 0QS706Z Reposition Left Upper Femur with Intramedullary Internal Fixation Device, Open Approach (ICD-10-PCS; principal; 2019-04-05)
DX: S72.142A Displaced intertrochanteric fracture of left femur, initial encounter for closed fracture (principal); E87.1 Hypo-osmolality and hyponatremia; W19.XXXA Unspecified fall, initial encounter; Y92.009 Unspecified place in unspecified non-institutional (private) residence as the place of occurrence of the external cause; E11.9 Type 2 diabetes mellitus without complications; K21.9 Gastro-esophageal reflux disease without esophagitis; E78.5 Hyperlipidemia, unspecified; D64.9 Anemia, unspecified; M81.0 Age-related osteoporosis without current pathological fracture; Z79.82 Long term (current) use of aspirin; Z79.899 Other long term (current) drug therapy; E66.9 Obesity, unspecified; I95.1 Orthostatic hypotension; Z96.652 Presence of left artificial knee joint; Z90.49 Acquired absence of other specified parts of digestive tract
CPT/HCPCS: 36415; 70450-TC; 71045-TC; 73080-TC; 73502; 73564-TC; 80048-TC; 80061-TC; 80076-TC; 81000-TC; 82962-TC; 83735-TC; 84100-TC; 84443-TC; 84484-TC; 85025-TC; 85027-TC; 85730-TC; 86850-TC; 87081-TC; 93307-TC; 97110-TC; 97116-TC; 97530-TC; G0378; J0690; J1170; J1650; J2250; J2270; J2405; J2704; J2765; J3010; J3475; J3490; J7030; J7040; J7060